=== PATIENT | female | born 1995 | race Two or more races ===

== ENCOUNTER 2018-12-22 20:56 | Observation (INO) | payer MEDICAID ==
[~2018-12-22] VITALS: Ht 162.6 cm; Wt 90.7 kg
[2018-12-22] MEDS ORDERED: LACTATED RINGERS 1,000 ML IV SCH (21:47)
[2018-12-22] MEDS ORDERED: ACETAMINOPHEN 500MG TABLET PO NR (21:51)
[2018-12-23] MEDS ORDERED: PNV1TABL50 MT (01:18)
== END 2018-12-23 01:40 | disposition home or self-care (01) ==
LOC: OB TRIAGE 20:56
PROVIDERS: ADMIT Obstetrics & Gynecology; ATTEND Obstetrics & Gynecology
DX: Z04.3 Encounter for examination and observation following other accident (principal); Z3A.28 28 weeks gestation of pregnancy
CPT/HCPCS: 76805; 76818; 99281; G0378